=== PATIENT | female | born 1970 | race African-American/Black ===

== ENCOUNTER → 2018-03-31 | Outpatient (CLI) | payer OTHER ==
[~2018-03-31] MED LIST: 0.9 % SODIUM CHLORIDE 10 ML VIAL ONE; DEXAMETHASONE SOD PHOS 4 MG/ML VIAL ONE; IOHEXOL 300 MG/ML 50 ML VIAL. ONE; LIDOCAINE 1% PF 30 ML VIAL. ONE
== END | disposition home or self-care (01) ==
LOC: SURG 12:24
PROVIDERS: ATTEND Anesthesiology Pain Medicine
DX: M54.12 Radiculopathy, cervical region (principal); Z79.899 Other long term (current) drug therapy
CPT/HCPCS: 62321; J1100; J2001; Q9967

== ENCOUNTER → 2018-06-09 | Outpatient (CLI) | payer OTHER ==
[~2018-06-09] MED LIST changes: -0.9 % SODIUM CHLORIDE 10 ML VIAL ONE; +BUPIVACAINE MPF 0.25% 10 ML VIAL. ONE
== END | disposition home or self-care (01) ==
LOC: SURG 09:54
PROVIDERS: ATTEND Anesthesiology Pain Medicine
DX: M51.16 Intervertebral disc disorders with radiculopathy, lumbar region (principal); M47.22 Other spondylosis with radiculopathy, cervical region; K21.9 Gastro-esophageal reflux disease without esophagitis; J45.909 Unspecified asthma, uncomplicated; M19.90 Unspecified osteoarthritis, unspecified site; Z72.89 Other problems related to lifestyle; Z98.890 Other specified postprocedural states; Z98.51 Tubal ligation status; Z79.899 Other long term (current) drug therapy
CPT/HCPCS: 64483; 64484; J1100; J2001; J3490; Q9967

== ENCOUNTER → 2018-06-30 | Outpatient (CLI) | payer OTHER ==
[~2018-06-30] MED LIST changes: +0.9 % SODIUM CHLORIDE 10 ML VIAL ONE; -BUPIVACAINE MPF 0.25% 10 ML VIAL. ONE; +DEXAMETHASONE SOD PHOS 10 MG/ML VIAL ONE; -DEXAMETHASONE SOD PHOS 4 MG/ML VIAL ONE
== END | disposition home or self-care (01) ==
LOC: SURG 09:06
PROVIDERS: ATTEND Anesthesiology Pain Medicine
DX: M54.12 Radiculopathy, cervical region (principal); M54.16 Radiculopathy, lumbar region; J45.909 Unspecified asthma, uncomplicated; K21.9 Gastro-esophageal reflux disease without esophagitis; G89.29 Other chronic pain; Z79.899 Other long term (current) drug therapy; Z79.2 Long term (current) use of antibiotics; Z72.89 Other problems related to lifestyle; Z98.890 Other specified postprocedural states; Z98.51 Tubal ligation status
CPT/HCPCS: 62321; J1100; J2001; Q9967

== ENCOUNTER → 2018-08-04 | Outpatient (CLI) | payer OTHER | END | disposition home or self-care (01) | LOC: SURG 09:21 | PROVIDERS: ATTEND Anesthesiology Pain Medicine | DX: M54.12 Radiculopathy, cervical region (principal); M54.16 Radiculopathy, lumbar region; J45.909 Unspecified asthma, uncomplicated; Z79.899 Other long term (current) drug therapy; Z72.89 Other problems related to lifestyle; M19.90 Unspecified osteoarthritis, unspecified site; Z98.890 Other specified postprocedural states; Z98.51 Tubal ligation status | CPT/HCPCS: 62321; J1100; J2001; Q9967 ==

== ENCOUNTER → 2018-12-22 | Outpatient (CLI) | payer OTHER ==
[~2018-12-22] MED LIST changes: +ALBU0.63 NEB; +ARIP30TA4 PO; +AZEL30CR TP; +BETH25TA16 PO; +BUSP15TA PO; +CETI10TA16 PO; +CLIN45GE TP; +CYCL-331 PO; -DEXAMETHASONE SOD PHOS 10 MG/ML VIAL ONE; +ERGO500027 PO; +FISH12002 PO; +FLUO60SO3 TP; +GABA-586 PO; +HYDR25TA PO; +MAGN400C PO; +PRAZ2CAP2 PO; +RANI-376 PO; +TRAZ-120 PO; +methylPREDNISolone ACETATE 80 MG/ML VIAL. ONE
[2018-12-22 12:37] VITALS: BP 118/76
== END | disposition home or self-care (01) ==
LOC: SURG 11:01
PROVIDERS: ATTEND Anesthesiology Pain Medicine
DX: M54.16 Radiculopathy, lumbar region (principal); M54.12 Radiculopathy, cervical region; J45.909 Unspecified asthma, uncomplicated; K21.9 Gastro-esophageal reflux disease without esophagitis; Z72.89 Other problems related to lifestyle; Z79.899 Other long term (current) drug therapy; Z98.890 Other specified postprocedural states
CPT/HCPCS: 62323; J1040; J2001; Q9967

== ENCOUNTER → 2019-04-11 | Outpatient (CLI) | payer OTHER ==
[2019-04-11 16:00] VITALS: BP 131/74
== END ==
LOC: SURG 15:07
PROVIDERS: ATTEND Anesthesiology Pain Medicine
DX: M54.16 Radiculopathy, lumbar region (principal)
CPT/HCPCS: 62323; J1040; J2001; Q9967

== ENCOUNTER → 2020-12-05 | Outpatient (CLI) | payer OTHER ==
[2019-04-11 16:00] VITALS: BP 131/74
[~2020-12-05] MED LIST changes: -0.9 % SODIUM CHLORIDE 10 ML VIAL ONE; -IOHEXOL 300 MG/ML 50 ML VIAL. ONE; -LIDOCAINE 1% PF 30 ML VIAL. ONE; -methylPREDNISolone ACETATE 80 MG/ML VIAL. ONE
--- NOTE | 2020-12-05 14:48 | RAD ---
EXAM: Pelvic sonogram. HISTORY: Pelvic pain. TECHNIQUE: Transabdominal and transvaginal sonographic imaging of the pelvis was performed. COMPARISON: None. FINDINGS: The uterus is retroverted. There is heterogeneous uterine parenchyma. There is a 2.8 x 2.6 x 2.3 cm mass within the uterine fundus, likely a fibroid. There is a nabothian cyst within the cervi x. The ovaries are normal in size and demonstrate normal blood flow. There is a 3.7 cm simple appeari ng right ovarian cyst. There is a 1.4 cm left ovarian follicle. There is no pelvic free fluid. There is an IUD within the endometrial cavity. This obscures the endometrial stripe. IMPRESSION: 1. 3.7 cm simple appearing right ovarian cyst. There is also a 1.4 cm left ovarian follicle. There is normal ovarian blood flow. 2. 2.8 cm suspected uterine fibroid superimposed on diffusely heterogeneous uterine parenchyma. 3. IUD within the endometrial cavity. Electronically signed by: Donna Eagle MD (12/05/2020 2:46 PM) [id number]
== END ==
LOC: US 13:52
PROVIDERS: ATTEND Obstetrics & Gynecology
DX: N88.8 Other specified noninflammatory disorders of cervix uteri (principal)
CPT/HCPCS: 76830; 76856

== ENCOUNTER → 2021-06-12 | Outpatient (CLI) | payer OTHER ==
[2019-04-11 16:00] VITALS: BP 131/74
[~2021-06-12] MED LIST changes: -CYCL-331 PO; +CYCL10TA19 PO
--- NOTE | 2021-06-12 08:57 | RAD ---
EXAM: Pelvic sonogram. HISTORY: Pain. TECHNIQUE: Transabdominal and transvaginal sonographic imaging of the pelvis was performed. COMPARISON: 12/05/2020. FINDINGS: The uterus it is retroverted and measures 8.9 x 7.3 x 5.5 cm. There is an intrauterine cont raceptive device in expected position. There is a thin endometrium. The ovaries are normal in size an d demonstrate normal blood flow. There is a 4.2 cm simple left ovarian cyst. There is a 1.6 cm right ovarian follicle. There is a nabothian cyst within the cervix. There is a posterior uterine fibroid m easuring 3.1 x 3.0 x 2.8 cm. There is a small amount of pelvic free fluid. IMPRESSION: 1. 4.2 cm simple appearing left ovarian cyst. The previously demonstrated right ovarian cyst is no lo nger seen. 2. 3.1 cm uterine fibroid, slightly increased compared to the prior exam. 3. IUD in expected position. 4. Small amount of nonspecific pelvic free fluid. Electronically signed by: Donna Eagle MD (06/12/2021 8:54 AM) [id number]
== END ==
LOC: US 07:57
PROVIDERS: ATTEND Obstetrics & Gynecology
DX: Z09 Encounter for follow-up examination after completed treatment for conditions other than malignant neoplasm (principal); N83.201 Unspecified ovarian cyst, right side; D25.9 Leiomyoma of uterus, unspecified; N88.8 Other specified noninflammatory disorders of cervix uteri
CPT/HCPCS: 76830; 76856